=== PATIENT | female | born 1980 | race Caucasian/White ===

== ENCOUNTER 2022-10-28 10:10 | Emergency (ER) | payer SELFPAY ==
[2022-10-28] MEDS ORDERED: Ondansetron 4 MG/2 ML SDV IVPUSH ONE (11:14)
[2022-10-28] MEDS ORDERED: Morphine 4 MG/ML Syringe IVPUSH ONE (11:14)
[2022-10-28] MEDS ORDERED: Sodium Chloride 0.9% 1,000 ML IV ONE (11:24)
[2022-10-28 12:02] LABS: CARBON DIOXIDE,CO2 25.5 mmol/L (21.0-32.0); POTASSIUM,K 4.4 mmol/L (3.5-5.1)
[2022-10-28] MEDS ORDERED: Ketorolac 30 MG/ML SDV IVPUSH ONE (13:25)
== END 2022-10-28 15:03 | disposition home or self-care (01) ==
LOC: MW.ED 10:10
DX: N20.2 Calculus of kidney with calculus of ureter (principal); Z90.49 Acquired absence of other specified parts of digestive tract
CPT/HCPCS: 36415; 74176; 80053; 81001; 81025; 83690; 85025; 96361; 96374; 96375; 99284; J1885; J2270; J2405; J7030